=== PATIENT | female | born 1955 | race Caucasian/White ===

== ENCOUNTER → 2020-05-02 13:09 | Outpatient (CLI) | payer OTHER, MEDICARE, SELFPAY ==
--- NOTE | 2020-05-02 13:10 | DI.MRI.S_ITS ---
PROCEDURE: MR LUMBAR SPINE WO CON INDICATIONS: Scoliosis TECHNIQUE: Noncontrast sagittal T1 spin echo and T2 fast echo, sagittal STIR, axial T1 and T2 fast spin echo through the lumbar spine. In cases with scoliosis, additional coronal T2 fast spin echo may be performed. COMPARISON: [facility], MR, L-SPINE WITHOUT CONTRAST, 03/14/2013, 12:26. FINDINGS: Image quality: Excellent. Alignment and Curvature: Mild thoracolumbar curvature with convexity to the left centered at L1-L2. Bone Marrow: Marrow is of normal overall signal. No acute vertebral body compression fractures. Spinal Cord: Conus medullaris terminates at the L1-L2 level. Visualized cord demonstrates normal signal and size. Paraspinous Soft Tissues: No paravertebral masses. T11-T12: Imaged in sagittal plane only. Posterior disc protrusion likely results in mild canal stenosis. This was previously present. T12-L1: As before, there is diffuse disc bulge, mildly eccentric to the right, resulting in mild canal stenosis. There is no significant foraminal stenosis. L1-L2: Disc bulge. Mild facet hypertrophy. No canal stenosis or foraminal stenosis. L2-L3: A broad-based right posterior lateral disc protrusion has developed, where previously there was a diffuse disc bulge. This results in [id number] stenosis of the right side of the canal. There is mild facet hypertrophy. There is no significant foraminal stenosis. L3-L4: Minimal disc bulge. No canal stenosis or foraminal stenosis. L4-L5: As before, diffuse disc bulge and facet and ligament hypertrophy. Mild canal stenosis. Mild bilateral foraminal stenosis. L5-S1: Mild disc bulge. Mild facet hypertrophy. No canal stenosis or significant foraminal stenosis. IMPRESSION: 1. Interval progression of findings at L2-L3. A broad-based right posterior lateral disc protrusion has developed. There is [id number] stenosis of the right side of the canal. 2. Findings are otherwise stable. 3. Note is made of a posterior disc protrusion at T11-T12, imaged in sagittal plane only, likely resulting in mild canal stenosis. This is stable. 4. There is mild canal stenosis at T12-L1 and at L4-L5. 5. Multilevel facet hypertrophy. Dictated by: Anival Hooper M.D. on 05/02/2020 at 14:13 Approved by: Anival Hooper M.D. on 05/02/2020 at 14:22
== END ==
PROVIDERS: PCP Family Medicine; Referring Provider Physical Medicine & Rehabilitation; Visit Provider Physical Medicine & Rehabilitation
DX: M47.816 Spondylosis without myelopathy or radiculopathy, lumbar region (principal); M41.20 Other idiopathic scoliosis, site unspecified; M51.26 Other intervertebral disc displacement, lumbar region; M51.24 Other intervertebral disc displacement, thoracic region; M48.061 Spinal stenosis, lumbar region without neurogenic claudication; M48.05 Spinal stenosis, thoracolumbar region
CPT/HCPCS: 72148